=== PATIENT | female | born 1985 | race Caucasian/White ===

== ENCOUNTER 2016-12-19 18:49 | Emergency (ER) | payer BC ==
[~2016-12-19] VITALS: Ht 177.8 cm; Wt 79.6 kg
[2016-12-19 18:54] VITALS: TEMP 36.7; Ht 177.8 cm; Wt 79.6 kg
[2016-12-19] MEDS ORDERED: PRENTAB26 PO (19:03)
--- NOTE | 2016-12-19 19:28 | EMERGENCY ROOM VISIT NOTE ---
History Report prepared by David: Deya Borges Under the Supervision of: Eveline LazcanoO. First contact with patient: 18:58 Chief Complaint: VAGINAL BLEEDING Stated Complaint: HEAVY VAGINAL BLEEDING/SEVERE ABD PAIN MISCARRAIGE History of Present Illness The patient is a 31 year old female who presents to the Emergency Room with complaints of worsening vaginal bleeding for the past week and a half. The patient's last menstrual cycle was November 27. This was a week early, but was a normal length with a normal flow. About a week and a half ago she developed some mid-cycle spotting which she states is not unusual for her. Typically this spotting is bright red. A couple of days after it started, it turned into darker bleeding with clots. She called [facility] 6 days ago and had blood work done that day. It showed an elevated hCG. She was tested again 2 days ago and her levels had dropped significantly. The patient is /A4 including this current miscarriage. She states that today her bleeding was significantly heavier. She is also experiencing pelvic cramping and nausea. She rates her pain as a 6/10 in severity. She has not taken any medication for her pain. Source of History: patient Onset: a week and a half ago Position: other (vagina) Symptom Intensity: 6/10 Quality: other (bleeding) Timing: worsening Associated Symptoms: + abdominal pain, + nausea Review of Systems See HPI for pertinent positives & negatives. A total of 10 systems reviewed and were otherwise negative. Past Medical & Surgical Medical Problems: (1) Delivery outcome of single liveborn (2) Gallbladder calculus Family History Patient reports no known family medical history. Social History Smoking Status: Never Smoker Marital Status: Housing Status: lives with family Occupation Status: employed Current/Historical Medications Scheduled Levothyroxine Sodium (Levothyroxine Sodium), 25 MG PO DAILY Multivit/Min/Iron/Fol Ac/Pren ( Vitamin), 1 TAB PO DAILY Progesterone Micronized (Progesterone), 100 MG PO DAILY Allergies Coded Allergies: Ibuprofen (Unverified Allergy, Severe, hives, 06/30/15) Physical Exam Vital Signs Date Time Temp Pulse Resp B/P Pulse Ox O2 Delivery O2 Flow Rate FiO2 12/19/16 21:50 66 16 115/80 98 Room Air 12/19/16 20:07 65 18 129/73 96 Room Air 12/19/16 18:54 36.7 89 16 122/74 98 Room Air Physical Exam GENERAL: alert, well appearing, well nourished, no distress, non-toxic EYE EXAM: normal conjunctiva, PERRL and EOM's grossly intact OROPHARYNX: no exudate, no erythema, lips, buccal mucosa, and tongue normal and mucous membranes are moist NECK: supple, no nuchal rigidity, no adenopathy, non-tender LUNGS: Clear to auscultation. Normal chest wall mechanics HEART: no murmurs, S1 normal and S2 normal ABDOMEN: abdomen soft, non-tender, normo-active bowel sounds, no masses, no rebound or guarding. BACK: Back is symmetrical on inspection and there is no deformity, no midline tenderness, no CVA tenderness. SKIN: no rashes and no bruising UPPER EXTREMITIES: upper extremities are grossly normal. LOWER EXTREMITIES: No pitting edema. NEURO EXAM: Normal sensorium, cranial nerves II-XII grossly intact, normal speech, no gross weakness of arms, no gross weakness of legs. Medical Decision & Procedures ER Provider Diagnostic Interpretation: Radiology results have been interpreted by the radiologist and reviewed by me. PELVIC ULTRASOUND CLINICAL HISTORY: Positive test. Vaginal bleeding and cramping. COMPARISON STUDY: None. FINDINGS: Transabdominal and transvaginal scanning of the pelvis was performed. The uterus is within normal limits. The endometrial stripe is 8 mm in thickness. No evidence for an intrauterine gestational sac at this time. There are views are normal in size and demonstrate normal color flow. There is a 2 cm simple cyst within the left ovary. No adnexal masses. No pelvic free fluid. IMPRESSION: Normal pelvic ultrasound. No evidence for an intrauterine gestational sac at this time. In the setting of a positive test this could represent an early intrauterine , nonvisualized ectopic , or recent spontaneous . Clinical correlation and pelvic ultrasound/beta-hCG follow-up is recommended. Electronically signed by: Karlo Baugh M.D. 12/19/2016 8:22 PM Dictated Date/Time: 12/19/2016 8:19 PM Laboratory Results 12/19/16 19:22 Red Blood Count 4.13, Mean Corpuscular Volume 94.7, Mean Corpuscular Hemoglobin 32.0, Mean Corpuscular Hemoglobin Concent 33.8, Mean Platelet Volume 9.0, Neutrophils (%) (Auto) 61.8, Lymphocytes (%) (Auto) 27.4, Monocytes (%) (Auto) 7.9, Eosinophils (%) (Auto) 2.2, Basophils (%) (Auto) 0.4, Neutrophils # (Auto) 6.69, Lymphocytes # (Auto) 2.97, Monocytes # (Auto) 0.85, Eosinophils # (Auto) 0.24, Basophils # (Auto) 0.04 Test 12/19/16 19:22 White Blood Count 10.82 K/uL (4.8-10.8) Red Blood Count 4.13 M/uL (4.2-5.4) Hemoglobin 13.2 g/dL (12.0-16.0) Hematocrit 39.1 % (37-47) Mean Corpuscular Volume 94.7 fL (80-100) Mean Corpuscular Hemoglobin 32.0 pg (25-34) Mean Corpuscular Hemoglobin Concent 33.8 g/dl (32-36) Platelet Count 352 K/uL (130-400) Mean Platelet Volume 9.0 fL (7.4-10.4) Neutrophils (%) (Auto) 61.8 % Lymphocytes (%) (Auto) 27.4 % Monocytes (%) (Auto) 7.9 % Eosinophils (%) (Auto) 2.2 % Basophils (%) (Auto) 0.4 % Neutrophils # (Auto) 6.69 K/uL (1.4-6.5) Lymphocytes # (Auto) 2.97 K/uL (1.2-3.4) Monocytes # (Auto) 0.85 K/uL (0.11-0.59) Eosinophils # (Auto) 0.24 K/uL (0-0.5) Basophils # (Auto) 0.04 K/uL (0-0.2) RDW Standard Deviation 45.5 fL (36.4-46.3) RDW Coefficient of Variation 13.2 % (11.5-14.5) Immature Granulocyte % (Auto) 0.3 % Immature Granulocyte # (Auto) 0.03 K/uL (0.00-0.02) Urine Color YELLOW Urine Appearance CLEAR (CLEAR) Urine pH 5.0 (4.5-7.5) Urine Specific Strawn 1.032 (1.000-1.030) Urine Protein NEG (NEG) Urine Glucose (UA) NEG (NEG) Urine Ketones NEG (NEG) Urine Occult Blood 2+ (NEG) Urine Nitrite NEG (NEG) Urine Bilirubin NEG (NEG) Urine Urobilinogen NEG (NEG) Urine Leukocyte Esterase NEG (NEG) Urine WBC (Auto) 1-5 /hpf (0-5) Urine RBC (Auto) 0-4 /hpf (0-4) Urine Hyaline Casts (Auto) 0 /lpf (0-5) Urine Epithelial Cells (Auto) 10-20 /lpf (0-5) Urine Bacteria (Auto) NEG (NEG) Human Chorionic Gonadotropin, Qual POS (NEG) Human Chorionic Gonadotropin, Quant 5 mIU/mL Laboratory results per my review. Medications Administered Medications (Trade) Dose Ordered Sig/Kim Route Start Time Stop Time Status Last Admin Dose Admin Acetaminophen (Tylenol Tab) 1,000 mg NOW STAT PO 12/19/16 20:29 12/19/16 20:30 DC 12/19/16 20:35 1,000 MG Ondansetron HCl (Zofran Inj) 4 mg NOW STAT IV 12/19/16 20:29 12/19/16 20:30 DC 12/19/16 20:35 4 MG ED Course 1857: The patient was evaluated in room A11B. A complete history and physical exam was performed. 2028: Zofran 4 mg IV, Tylenol 1000 mg PO 2036: I reassessed the patient at this time. She is feeling better and resting comfortably. I discussed the results and treatment plan with the patient. I answered all pertaining questions that she had. She expressed understanding and verbalized agreement. 2051: I spoke with Dr. Jacobson of [facility] ob-obstetrics and gynecology professor. We discussed the patient's case and he was in agreement with the treatment plan. He recommended that she call the office tomorrow to schedule a follow-up appointment. 2149: I updated the patient on my discussion with Dr. Jacobson. At this time the patient will be discharged home. Medical Decision Differential diagnosis includes etiologies such as ectopic , spontaneous , retained POC's, dysfunction uterine bleeding, bleeding dyscrasia, trauma, infection, endometritis, UTI, as well as others were entertained. Patient able to review and show me outpatient labs including her hCG levels this past week. First hCG was 93, a repeat 4 days later was 17. Discussed patient's presentation today as well as my conversation with her MACHINE PIE MAKER. Patient with a normal H&H, no indication for Rhogam at this time, and pain controlled. Patient not orthostatic, tolerating by mouth. Ultrasound did not reveal any additional pathology. Doubt any concurrent infection, doubt retained products of conception. Discussed with patient close follow-up with OB /GEM EXPERT and they're comfortable with her being discharged to follow-up in the office. Discussed symptoms to watch and return for, she verbalized understanding was agreeable with plan. Consults Time Called: 2046 Consulting Physician: Dr. Jacobson Returned Call: [address] Jacobson of [facility] ob-obstetrics and gynecology professor. We discussed the patient's case and he was in agreement with the treatment plan. He recommended that she call the office tomorrow to schedule a follow-up appointment. Impression Primary Impression: Abnormal vaginal bleeding Additional Impression: Spontaneous Scribe Attestation The scribe's documentation has been prepared under my direction and personally reviewed by me in its entirety. I confirm that the note above accurately reflects all work, treatment, procedures, and medical decision making performed by me. Departure Information Dispostion Home / Self-Care Referrals No Doctor, Assigned (PCP) Forms HOME CARE DOCUMENTATION FORM, IMPORTANT VISIT INFORMATION, WORK / SCHOOL INSTRUCTIONS Patient Instructions My [facility] Additional Instructions Please call your MACHINE PIE MAKER's office tomorrow for follow-up. You may use tylenol and ibuprofen for pain as needed. Please drink plenty of fluids to stay well hydrated. If you have any worsening pain, vomiting, fevers, develop dizziness or passing out, or have any other new or concerning symptoms, please return to the ER. Problem Qualifiers
[2016-12-19 19:32] LABS: BASO % 0.4 %; BASO ABS # 0.04 K/uL (0-0.2); COMPLETE YES; EOS % 2.2 %; HEMATOCRIT 39.1 % (37-47); IG% 0.3 %; LYMPH % 27.4 %; LYMPH ABS # 2.97 K/uL (1.2-3.4); MEAN CELL VOLUME 94.7 fL (80-100); MEAN CORPUSCULAR HGB CONC 33.8 g/dl (32-36); MONO % 7.9 %; NEUT % 61.8 %; PLATELET COUNT 352 K/uL (130-400); RED BLOOD COUNT 4.13 M/uL (4.2-5.4); WHITE BLOOD COUNT 10.82 K/uL (4.8-10.8)
[2016-12-19 19:37] LABS: URINE APPEARANCE CLEAR (CLEAR); URINE BILIRUBIN NEG (NEG); URINE COLOR YELLOW; URINE NITRITE NEG (NEG); URINE SPECIFIC GRAVITY 1.032 (1.000-1.030); UROBILINOGEN NEG (NEG); ZZUR CULT IF INDIC CLEAN CATCH NO
[2016-12-19 19:40] LABS: MANUAL MICROSCOPIC REQUIRED? NO; REVIEW REQ? NO
[2016-12-19 19:56] LABS: PREG INTERNAL NEGATIVE QC NEG CLEAR BACKGROUND; PREG INTERNAL POSITIVE QC POS CONTROL LINE
--- NOTE | 2016-12-19 20:24 | DIAGNOSTIC IMAGING REPORT ---
PELVIC ULTRASOUND CLINICAL HISTORY: Positive test. Vaginal bleeding and cramping. COMPARISON STUDY: None. FINDINGS: Transabdominal and transvaginal scanning of the pelvis was performed. The uterus is within normal limits. The endometrial stripe is 8 mm in thickness. No evidence for an intrauterine gestational sac at this time. There are views are normal in size and demonstrate normal color flow. There is a 2 cm simple cyst within the left ovary. No adnexal masses. No pelvic free fluid. IMPRESSION: Normal pelvic ultrasound. No evidence for an intrauterine gestational sac at this time. In the setting of a positive test this could represent an early intrauterine , nonvisualized ectopic , or recent spontaneous . Clinical correlation and pelvic ultrasound/beta-hCG follow-up is recommended. Electronically signed by: Karlo Baugh M.D. 12/19/2016 8:22 PM Dictated Date/Time: 12/19/2016 8:19 PM
[2016-12-19] MEDS ORDERED: ACETAMINOPHEN 500 MG TAB PO STA (20:29)
[2016-12-19] MEDS ORDERED: LEVO25TA5 PO (20:29)
[2016-12-19] MEDS ORDERED: PROG1CAP PO (20:29)
[2016-12-19] MEDS ORDERED: ONDANSETRON INJ 2 MG/ML 2 ML VIAL IV STA (20:29)
[2016-12-19 21:50] VITALS: BP 115/80; PULSE 66; O2SAT 98
== END 2016-12-19 21:50 | disposition home or self-care (01) ==
LOC: C.EDB 18:52 → C.EDA 21:50
DX: N93.9 Abnormal uterine and vaginal bleeding, unspecified (principal); O03.9 Complete or unspecified spontaneous abortion without complication

== ENCOUNTER 2022-03-10 03:13 | Inpatient (IN) ==
[2022-03-10] MEDS ORDERED: LACTATED RINGER'S 1,000 ML IV PRN (03:22)
[2022-03-10] MEDS ORDERED: OXYTOCIN 30 UNITS/500 ML BAG IV PRN ×2 (03:22→04:00)
[2022-03-10] MEDS ORDERED: LIDOCAINE 1% LOCAL 20 ML VIAL ONE ×2 (03:34→03:41)
[2022-03-10] MEDS ORDERED: bisacodyL 10 MG SUPP PR PRN (04:00)
[2022-03-10] MEDS ORDERED: MEASLES, MUMPS & RUBELLA VIRUS VIAL SQ ONE (04:00)
[2022-03-10] MEDS ORDERED: BENZOCAINE 20% AER SPR 82.5 GM CAN EXT PRN (04:00)
[2022-03-10] MEDS ORDERED: oxyCODONE/ACETAMINOPHEN 5mg/325mg TAB PO PRN (04:00)
[2022-03-10] MEDS ORDERED: HYDROCORTISONE ACETATE 25 MG SUPP PR PRN (04:00)
[2022-03-10] MEDS ORDERED: OXYTOCIN 20 UNITS in LACTATED RINGER'S 1,000 ML IV SCH (04:00)
[2022-03-10] MEDS ORDERED: DIPHTHERIA/TETANUS/PERTUSSIS 0.5 ML SYR/VIAL IM ONE (04:00)
--- NOTE | 2022-03-10 04:07 | Delivery Summary ---
Vaginal Delivery Summary Date of Service March 10, 2022 Vaginal Delivery Summary Patient is a 36-year-old -0-0-2 at 39 weeks and 3 days of gestation who presents to labor and delivery in active labor. She woke up with contractions at 1:30 AM, contractions get regular and painful every 2 minutes. When she came to labor and delivery she was very painful and has pressure to push. She was hoping to get epidural but there was not much time. Her cervix was 8-9 cm dilated, 90% with a large bulging bag and head was at 0 station. She got an IV site and then desired AROM to facilitate delivery. AROM was done and dark meconium fluid was obtained. Right after that patient pushed once and delivered the head without difficulty. There was a nuchal cord around the neck x1 which was reduced. The shoulders were delivered with minimal traction and the baby was handed to the mother, where mouth and nose were suctioned, the cord was clamped times and cut it following the delay. The baby was vigorously moving and crying at that point. The vagina perineum were checked for lacerations. There was a small second- degree perineal laceration at the posterior fourchette. Local anesthesia was done with lidocaine this was repaired with 2-0 Vicryl in a running locked fashion. Rest of the vagina and labia were intact. The placenta was found to be in the vagina, delivered spontaneously as intact and complete. Uterus was explored and found to be empty, lower segment was cleared of all clots and debris's. IV oxytocin infusion was started. EBL was 250 mL and fundus was firm. Mom and baby tolerated procedure well. Sponge needle instrument count was correct x2. The baby was a viable male infant, Apgars were 8/9 and weight is pending. No complications happened and I was present during whole procedure.
[2022-03-10 04:14] LABS: Hematocrit (blood only) 36.6 % (34.1-44.9); Hemoglobin 12.8 g/dl (12.0-16.0); Mean Corpuscular Hemoglobin 33.5 pg (25.0-34.0); Mean Corpuscular Volume 95.8 fL (80.0-100.0); Mean Platelet Volume 9.4 fL (9.4-12.3); Platelet Count 196 K/uL (130-400); RDW Coefficient of Variation 13.4 % (11.5-14.5); RDW Standard Deviation 46.9 fL (36.4-46.3); Red Blood Count 3.82 M/uL (3.93-5.22); White Blood Count 12.52 K/ul (4.8-10.8)
[2022-03-10] MEDS: ACETAMINOPHEN 325 MG TAB PO PRN ×3 (04:50→19:55)
[2022-03-10] MEDS: METHYLERGONOVINE MALEATE 0.2 MG TAB PO SCH ×3 (05:40→12:43)
[2022-03-10] MEDS: LEVOTHYROXINE SODIUM 88 MCG TABLET PO SCH (07:06)
[2022-03-10] MEDS: DOCUSATE SODIUM 100 MG CAP PO SCH ×2 (08:30→19:55)
[2022-03-10] MEDS: PRENATAL VITAMIN 1 TAB PO SCH (08:30)
[2022-03-10] MEDS: FERROUS SULFATE 325 MG TAB PO SCH (08:30)
[2022-03-11] MEDS: ACETAMINOPHEN 325 MG TAB PO PRN ×2 (05:09→10:27)
[2022-03-11 06:24] LABS: Hematocrit (blood only) 32.4 % (34.1-44.9); Hemoglobin 11.1 g/dl (12.0-16.0); Mean Corpuscular Hemoglobin 32.8 pg (25.0-34.0); Mean Corpuscular Hgb Conc 34.3 g/dL (32.0-36.0); Mean Corpuscular Volume 95.9 fL (80.0-100.0); Mean Platelet Volume 9.2 fL (9.4-12.3); Platelet Count 172 K/uL (130-400); RDW Coefficient of Variation 13.6 % (11.5-14.5); RDW Standard Deviation 47.8 fL (36.4-46.3); Red Blood Count 3.38 M/uL (3.93-5.22); White Blood Count 13.96 K/ul (4.8-10.8)
[2022-03-11] MEDS: FERROUS SULFATE 325 MG TAB PO SCH (08:39)
[2022-03-11] MEDS: PRENATAL VITAMIN 1 TAB PO SCH (08:39)
[2022-03-11] MEDS: DOCUSATE SODIUM 100 MG CAP PO SCH (08:39)
[2022-03-11] MEDS: LEVOTHYROXINE SODIUM 88 MCG TABLET PO SCH (08:39)
--- NOTE | 2022-03-11 09:58 | Obstetrical Progress Note ---
Date of Service March 11, 2022 Subjective Ambulation: ambulating normally Voiding: no voiding problems Diet Tolerance:: regular diet Lochia:: Small Feeding Type:: breast feeding Current Pain Level(1-10): 0 doing well. plans for d/c today Physical Exam Constitutional WD/WN, vitals as above Musculoskeletal Extremities: extremities normal to inspection no edema. neg Ken's Skin no rashes, warm and dry Neurologic patellar DTR's 2+ bilat, sensation intact Psychiatric A+Ox3, euthymic affect Genitourinary abdomen soft and non-temder. fundus firm below U Results & Data ([facility]) Vital Signs (Past 12 Hours) Vital Signs Temp Pulse Resp BP Pulse Ox O2 Del Method 03/11/22 08:35 36.7 C 93 H 18 130/85 Room Air 03/11/22 04:17 36.6 C 96 H 16 123/80 97 Room Air 03/10/22 23:09 36.6 C 97 H 16 127/85 98 Room Air Laboratory Results Laboratory Results - last 72 hr 03/10/22 03/11/22 04:03 06:17 WBC 12.52 H 13.96 H RBC 3.82 L 3.38 L Hgb 12.8 11.1 L Hct 36.6 32.4 L MCV 95.8 95.9 MCH 33.5 32.8 MCHC 35.0 34.3 RDW Std Deviation 46.9 H 47.8 H RDW Coeff of Rika 13.4 13.6 Plt Count 196 172 MPV 9.4 9.2 L
[2022-03-11] MEDS ORDERED: bisacodyL 5 MG TABEC PO SCH (20:00)
== END 2022-03-11 12:20 | disposition home or self-care (01) | DRG 807 ==
LOC: OPB 03:13 → 4S1 03:20 → 4E2 06:57
DX: Z3A.39 39 weeks gestation of pregnancy; O70.1 Second degree perineal laceration during delivery; O69.81X0 Labor and delivery complicated by cord around neck, without compression, not applicable or unspecified; Z37.0 Single live birth; O77.0 Labor and delivery complicated by meconium in amniotic fluid